=== PATIENT | male | born 1960 | race Caucasian/White ===

== ENCOUNTER 2019-09-27 16:40 | Emergency (ER) | payer BC, SELFPAY ==
--- NOTE | ~2019-09-27 | CT_ITS ---
EXAMINATION: CT abdomen pelvis wo con DATE: 09/27/2019 18:19 INDICATION: Dysuria. TECHNIQUE: Computed tomography (CT) of the abdomen and pelvis was performed without intravenous contr ast. The dose-length product was 602.93 mGy-cm. Automated exposure control and iterative reconstructi on technique were employed. COMPARISON: None. FINDINGS: Lung bases are unremarkable. Heart size normal. No significant pleural or pericardial effus ion. There is a 4.6 cm left renal cyst. There is left hydroureteronephrosis. No obstructing stone or mass is identified. There is a Jason catheter in the bladder which is not well distended for evaluati on. Enlarged prostate gland. The liver, spleen, pancreas, adrenal glands and right kidney are unremarkable. No free air or free fl uid. There is atherosclerosis. Small hiatal hernia. No lymphadenopathy. There is diffuse widespread sclerosis throughout the ribs, all visualized vertebral bodies, sacrum, p javier and femurs, consistent with widespread metastatic disease. IMPRESSION: 1. Mild left hydroureteronephrosis to the UVJ. No obstructing stone. Evaluation of bladder is limited by a Jason catheterization. 2: Widespread osseous metastases, likely secondary to prostate cancer. Enlarged prostate gland. Reviewed, dictated and finalized at location A.
[2019-09-27 17:06] VITALS: BP 119/84; PULSE 67; RESP 18; TEMP 37.2; O2SAT 100
[2019-09-27 17:40] LABS: Basophils Percent Auto 0.4 % (0.2-1.2); Eosinophils Percent Auto 0.6 % (0-4.4); Hematocrit 35.7 % (42.0-52.0); Hemoglobin 12.2 g/dL (14.0-18.0); Immature Granulocyte Absolute 0.11 K/mm3 (0.00-0.031); Immature Granulocyte Percent A 2.1 % (0-0.5); Immature Platelet Fraction Pct 1.9 % (0.9-11.2); Lymphocytes Absolute Auto 1.16 K/mm3 (0.9-3.2); Lymphocytes Percent Auto 22.1 % (18.3-44.2); Mean Corpuscular HGB Conc 34.2 g/dl (32-36); Mean Platelet Volume 8.8 fl (7.4-10.4); Monocytes Absolute Auto 0.5 K/mm3 (0.1-0.6); Monocytes Percent Auto 9.5 % (2.6-8.5); Neutrophils Absolute Auto 3.4 K/mm3 (1.3-6.7); Neutrophils Percent Auto 65.3 % (45.5-73.1); Platelet Count Result 167 k/mm3 (150-375); Red Cell Distribution Width 14.5 % (11.5-14.5); White Blood Count 5.3 K/mm3 (4.5-10.0)
[2019-09-27 17:43] LABS: Add Urine Microscopic? YES; Appearance Urine Clear (Clear); Bacteria Urine Trace /hpf; Bilirubin Urine Negative (Negative); Blood Urine Negative (Negative); Color Urine Yellow (Yellow); Glucose Urine UA Negative (Negative); Ketones Urine Negative (Negative); Leukocyte Esterase Ur Negative LEU/UL (Negative); Mucus Urine Rare /lpf; Nitrate Urine Negative (Negative); Protein Urine Negative (Negative); Specific Grav Ur 1.016 (1.001-1.035); Urobilinogen Urine Negative mg/dL (<2.0); WBC Urine 0-3 /hpf
[2019-09-27 17:51] LABS: Alanine Aminotransferase 26 U/L (4-50); Albumin Level 4.1 g/dL (3.5-5.1); Alkaline Phosphatase 1341 U/L (38-126); Aspartate Amino Transferase 77 U/L (17-59); Bilirubin,Total 1.6 mg/dL (0.2-1.3); Blood Urea Nitrogen 9 mg/dL (9-20); Calcium 8.9 mg/dL (8.4-10.2); Carbon Dioxide 26 mmol/L (22-30); Chloride 100 mmol/L (98-107); Estimated CRCL calculation 94 ml/min; Estimated Glomerular Filt Rate > 60; Glucose 110 mg/dL (75-110); Potassium 4.1 mmol/L (3.4-5.0); Sodium 134 mmol/L (137-145)
--- NOTE | 2019-09-27 18:42 | ED.ABDPAIN ---
HPI - Abdominal Pain General Chief Complaint: Urogenital-Male <Fran River PA-C - Last Filed: 09/27/19 19:47> Stated Complaint: unable to urinate <Fran River PA-C - Last Filed: 09/27/19 19:47> Time Seen by Provider: 09/27/19 16:48 <Fran River PA-C - Last Filed: 09/27/19 19:47> Source: patient <Fran River PA-C - Last Filed: 09/27/19 19:47> Mode of arrival: ambulatory <Fran River PA-C - Last Filed: 09/27/19 19:47> Limitations: no limitations <Fran River PA-C - Last Filed: 09/27/19 19:47> History of Present Illness HPI narrative: Patient is a 59-year-old male who presents to emergency department for evaluation of dysuria that began over the weekend noting that he was having to strain harder and harder to urinate denies similar occurrence in the past patient on arrival to emergency department patient notes suprapubic discomfort since not been able to urinate. Since last night. Patient denies other complaints fever chills nausea vomiting is otherwise resting comfortably in the room on arrival <Fran River PA-C - Last Filed: 09/27/19 19:47> Related Data Allergies/Adverse Reactions: Allergies Allergy/AdvReac Type Severity Reaction Status Date / Time No Known Allergies Allergy Verified 09/27/19 17:10 <Fran River PA-C - Last Filed: 09/27/19 19:47> Review of Systems Review of Systems: All systems reviewed & are unremarkable except as noted in HPI and below <Fran River PA-C - Last Filed: 09/27/19 19:47> PMFSH Social History Social History: Social History Gender identity (if verbalized by the patient): Male <Fran River PA-C - Last Filed: 09/27/19 19:47> Exam Narrative: Exam Narrative: GENERAL: Well-appearing, well-nourished, and in no acute distress. HEAD: Normocephalic, atraumatic. EYES: PERRLA and EOMI. ENT: Nares clear, no rhinorrhea or epistaxis. Mucous membranes moist. CHEST: Clear to auscultation. No respiratory distress. No wheezes rales or rhonchi HEART: Regular rate and rhythm. No murmur heard. Normal peripheral pulses. ABDOMEN: Soft, suprapubic tenderness to palpation, nondistended, normal active bowel sounds. EXTREMITIES: Normal range of motion. No edema. SKIN: Warm, dry, no rash. NEURO: No focal deficits. Alert and oriented x3. Cranial nerves II through XII grossly intact PSYCH: Normal mood and affect. <JUAN CARLOS Berrios Last Filed: 09/27/19 19:47> Course Consultations Consultation #1: Discussed case with urology who recommends that the patient follow-up immediately with primary care and oncology for further stratification of the findings and notes that it is appropriate for the patient to follow-up on an outpatient basis given his current status and presentation and desire to return to [place] <JUAN CARLOS Berrios Last Filed: 09/27/19 19:47> Date: 09/27/19 <JUAN CARLOS Berrios Last Filed: 09/27/19 19:47> Time: 19:42 <JUAN CARLOS Berrios Last Filed: 09/27/19 19:47> Vital Signs Vital signs: Vital Signs Temperature 98.9 F 09/27/19 17:06 Pulse Rate 67 09/27/19 17:06 Respiratory Rate 18 09/27/19 17:06 Blood Pressure 119/84 09/27/19 17:06 Pulse Oximetry 100 09/27/19 17:06 Temperature 98.5 F 09/27/19 20:03 Pulse Rate 85 09/27/19 20:03 Respiratory Rate 18 09/27/19 20:03 Blood Pressure 115/71 09/27/19 20:03 Pulse Oximetry 94 09/27/19 20:03 <JUAN CARLOS Berrios Last Filed: 09/27/19 19:47> Vital Signs Temperature 98.9 F 09/27/19 17:06 Pulse Rate 67 09/27/19 17:06 Respiratory Rate 18 09/27/19 17:06 Blood Pressure 119/84 09/27/19 17:06 Pulse Oximetry 100 09/27/19 17:06 Temperature 98.5 F 09/27/19 20:03 Pulse Rate 85 09/27/19 20:03 Respiratory Rate 18 09/27/19 20:03 Blood Pressure 115/71 09/27/19 20:03
--- NOTE | 2019-09-27 19:30 | PC.NURSE ---
Education of cardenas care and educated pt on how to change from urinary leg drainage bag to large urinary bag. Pt educated on general cardenas care. Pt also educated on how to change from leg bag into large drainage bag for night time use. Pt verbalized understanding of all education and gave return demonstration on switching from leg bag to night bag and how to empty urinary cardenas bag. Pt also educated on perscribed medication, Tamulosin, including side effects and perscribed use of medication. Pt verbalized understanding of perscribed medication education.
[2019-09-27 20:03] VITALS: BP 115/71; PULSE 85; RESP 18; TEMP 36.9; O2SAT 94
== END 2019-09-27 20:00 | disposition home or self-care (01) ==
PROVIDERS: Emergency Medicine Emergency Medical Services; Emergency Provider Emergency Medicine
DX: N40.1 Benign prostatic hyperplasia with lower urinary tract symptoms (principal); R33.8 Other retention of urine; C79.51 Secondary malignant neoplasm of bone; R93.49 Abnormal radiologic findings on diagnostic imaging of other urinary organs; N13.30 Unspecified hydronephrosis
CPT/HCPCS: 36415; 51702; 74176; 80053; 81001; 85025; 85055; 99284